=== PATIENT | female | born 1950 | race Caucasian/White ===

== ENCOUNTER 2017-01-29 13:37 | Inpatient (IN) | payer OTHER ==
[~2017-01-29] VITALS: Ht 157.5 cm; Wt 54.0 kg
[2017-01-29 14:49] LABS: HEMOGLOBIN 17.9 gm/dl (12.3-15.3); RED BLOOD COUNT 5.69 M/UL (4.00-5.10); WHITE BLOOD COUNT 9.7 K/UL (4.5-11.0)
[2017-01-29 15:13] LABS: BUN/CREATININE RATIO 20 (0-10)
[2017-01-29] MEDS ORDERED: CHLORTHALIDONE50 MG PO (21:44)
[2017-01-29] MEDS ORDERED: LISINOPRIL40 MG PO (21:45)
[2017-01-29] MEDS ORDERED: CARTIA XT120 MG PO (21:45)
[2017-01-29] MEDS ORDERED: LANOXIN TAB0.125 MG PO (21:46)
[2017-01-29] MEDS ORDERED: METOPROLOL SUC200 MG PO (21:47)
[2017-01-29] MEDS ORDERED: FOLIC ACID1 MG PO (21:47)
[2017-01-29] MEDS ORDERED: CHLORTHALID PO (21:48)
[2017-01-29 22:14] LABS: BUN/CREATININE RATIO 20 (0-10)
[2017-01-30 00:26] LABS: BUN/CREATININE RATIO 22 (0-10)
[2017-01-30 03:35] LABS: HEMOGLOBIN 16.2 gm/dl (12.3-15.3); RED BLOOD COUNT 5.16 M/UL (4.00-5.10); WHITE BLOOD COUNT 9.4 K/UL (4.5-11.0)
[2017-01-30 03:55] LABS: BUN/CREATININE RATIO 20 (0-10)
[2017-01-30 06:55] LABS: BUN/CREATININE RATIO 20 (0-10)
[2017-01-31 04:18] LABS: BUN/CREATININE RATIO 23 (0-10)
[2017-02-01 04:14] LABS: WHITE BLOOD COUNT 9.8 K/UL (4.5-11.0)
[2017-02-01 04:20] LABS: HEMOGLOBIN 13.3 gm/dl (12.3-15.3); RED BLOOD COUNT 4.28 M/UL (4.00-5.10)
[2017-02-02 05:10] LABS: HEMOGLOBIN 11.2 gm/dl (12.3-15.3); RED BLOOD COUNT 3.65 M/UL (4.00-5.10); WHITE BLOOD COUNT 6.8 K/UL (4.5-11.0)
[2017-02-02 05:23] LABS: BUN/CREATININE RATIO 16 (0-10)
[2017-02-03 05:07] LABS: HEMOGLOBIN 10.3 gm/dl (12.3-15.3); RED BLOOD COUNT 3.43 M/UL (4.00-5.10); WHITE BLOOD COUNT 5.2 K/UL (4.5-11.0)
[2017-02-03 05:24] LABS: BUN/CREATININE RATIO 18 (0-10)
[2017-02-04 05:17] LABS: BUN/CREATININE RATIO 12 (0-10)
[2017-02-05 05:41] LABS: BUN/CREATININE RATIO 10 (0-10)
[2017-02-06 05:02] LABS: BUN/CREATININE RATIO 10 (0-10)
[2017-02-06] MEDS ORDERED: THERAGRAN TAB1 EA PO (21:49)
[2017-02-06] MEDS ORDERED: VITAMIN B-1 5050 MG PO (21:51)
[2017-02-06] MEDS ORDERED: B-1100 MG PO (22:04)
== END 2017-02-06 22:18 | disposition home or self-care (01) | DRG 640 ==
LOC: ER1 13:37 → ZEROF 18:20 → CCU 18:20 → MED SURG 4 02-05 13:46
PROVIDERS: Emergency Medicine; Internal Medicine; Internal Medicine Nephrology; ADMIT Hospitalist
DX: E87.1 Hypo-osmolality and hyponatremia (principal); R57.1 Hypovolemic shock; G93.40 Encephalopathy, unspecified; I50.22 Chronic systolic (congestive) heart failure; I48.1 Persistent atrial fibrillation; I42.8 Other cardiomyopathies; N39.0 Urinary tract infection, site not specified; N17.9 Acute kidney failure, unspecified; I11.0 Hypertensive heart disease with heart failure; I48.0 Paroxysmal atrial fibrillation; F10.10 Alcohol abuse, uncomplicated; E86.0 Dehydration; E78.5 Hyperlipidemia, unspecified; R07.9 Chest pain, unspecified; R11.2 Nausea with vomiting, unspecified; R26.9 Unspecified abnormalities of gait and mobility; F17.210 Nicotine dependence, cigarettes, uncomplicated; Z79.899 Other long term (current) drug therapy; Z88.0 Allergy status to penicillin; Z88.7 Allergy status to serum and vaccine; Z91.018 Allergy to other foods; Z91.410 Personal history of adult physical and sexual abuse; Z98.890 Other specified postprocedural states; Z83.3 Family history of diabetes mellitus; Z82.49 Family history of ischemic heart disease and other diseases of the circulatory system; Z80.9 Family history of malignant neoplasm, unspecified
CPT/HCPCS: ECHO; 36415; 71010; 71020; 80048; 80053; 81001; 82436; 82533; 82550; 82553; 83605; 83735; 83874; 83880; 83935; 84133; 84295; 84300; 84443; 84484; 84550; 85025; 85027; 85379; 85610; 85730; 87040; 93005; 93306; 96361; 96372; 96374; 96375; 97110; 97116; 97530; 97535; 99291; C1751; J0696; J1650; J1956; J2060; J3411; J7030; J7050; J7070; J7131; Q9963